=== PATIENT | male | born 1955 | race Asian ===

== ENCOUNTER → 2016-07-20 | Outpatient (CLI) | payer OTHER ==
[~2016-07-20] MED LIST: ASPI300S PO; ATOR20TA9 PO; ENAL20TA PO; GLIP5POW; HYDR1POW19 PO; LOVA20TA2 PO; METO-93 PO; OMEP-110; OMEP-110 PO; POTA20TA14 PO; SAXA5TAB PO; VIT1TABL67
== END | disposition home or self-care (01) ==
LOC: CFH 10:38
PROVIDERS: ATTEND Internal Medicine Cardiovascular Disease
DX: I08.1 Rheumatic disorders of both mitral and tricuspid valves (principal); I37.1 Nonrheumatic pulmonary valve insufficiency; E11.9 Type 2 diabetes mellitus without complications; I10 Essential (primary) hypertension; F17.200 Nicotine dependence, unspecified, uncomplicated
CPT/HCPCS: 93306